=== PATIENT | male | born 1990 | race Caucasian/White ===

== ENCOUNTER 2020-10-01 21:29 | Emergency (ER) | payer BC ==
[2020-10-01] MEDS ORDERED: Sodium Chloride 0.9% 1,000 ML IV ONE (21:54)
--- NOTE | 2020-10-01 22:00 | EDM.PDOC ---
ED HPI GENERAL MEDICAL PROBLEM - General Chief Complaint: Cardiovascular Problem Stated Complaint: ELEVATED HR Time Seen by Provider: 10/01/20 21:45 Source of Information: Reports: Patient History Limitations: Reports: No Limitations - History of Present Illness INITIAL COMMENTS - FREE TEXT/NARRATIVE: Patient presents the ER tonight with a fast heart rate. Patient states appro ximately about 730 while playing tennis he bent down to picker / packer a ball and when he came up he noticed his heart rate was beating fast he would drink some cold water and it seemed to slow it down then he had a few seconds of dizziness he waited another 15 minutes and the heart rate did not slow down he presented here to the emergency room. Patient says over the last 10 years or so he has had intermittent episodes of the above with his heart rate racing he said it may last anywhere from minutes to hours at a time. He said it just comes on sporadically sometimes he has a dizziness sometimes he does not. He denies any chest pain or shortness of breath headache vision changes no diaphoresis or vision changes He said he has never seen a heart doctor and is not mention this to his primary care provider who he saw approximately a month or so ago for a wellness checkup and had no issues. He states he does drink significant amount of caffeine 3 to 4 cups of coffee a day plus Cokes denies energy drinks he did state he had a cup of coffee tonight at [facility] about 30 to 45 minutes prior to playing tennis. Does not drink does not smoke does not do drugs Family history of heart issues but he is unsure of what He has no other complaints at this time Duration: Hour(s): Location: Denies: Head, Face, Chest, Back Context: Reports: Activity, Exercise Associated Symptoms: Denies: Confusion, Chest Pain, Diaphoresis, Headaches, Loss of Appetite, Nausea/Vomiting, Shortness of Breath, Syncope, Weakness ED ROS GENERAL - Review of Systems Review Of Systems: See Below Constitutional: Reports: No Symptoms HEENT: Reports: No Symptoms, Other (He denies any ringing or roaring in the ears). Denies: Hearing Loss, Rhinitis, Sinus Problem, Vertigo Respiratory: Reports: No Symptoms Cardiovascular: Reports: Lightheadedness, Other (When asked if he had high blood pressure he had never noted any and states he was normal on his last visit he has no endorgan signs or symptoms). Denies: Chest Pain, Blood Pressure Problem, Dyspnea on Exertion, Edema, Orthopnea, Palpitations, Syncope Endocrine: Reports: No Symptoms GI/Abdominal: Reports: No Symptoms : Reports: No Symptoms Musculoskeletal: Reports: No Symptoms Skin: Reports: No Symptoms Neurological: Reports: No Symptoms Psychiatric: Reports: No Symptoms Hematologic/Lymphatic: Reports: No Symptoms Immunologic: Reports: No Symptoms ED EXAM, GENERAL - Physical Exam Exam: See Below Exam Limited By: No Limitations General Appearance: Alert, WD/WN, No Apparent Distress Eye Exam: Bilateral Eye: EOMI, Normal Inspection, PERRL Ears: Normal External Exam, Normal Canal, Hearing Grossly Normal, Normal TMs Nose: Normal Inspection, Normal Mucosa, No Blood Throat/Mouth: Normal Inspection, Normal Lips, Normal Teeth, Normal Gums, Normal Oropharynx, Normal Voice, No Airway Compromise Head: Atraumatic, Normocephalic Neck: Normal Inspection, Supple, Non-Tender, Full Range of Motion Respiratory/Chest: No Respiratory Distress, Lungs Clear, Normal Breath Sounds, No Accessory Muscle Use, Chest Non-Tender Cardiovascular: Normal Peripheral Pulses, Regular Rate, Rhythm, No Edema, No Gallop, No JVD, No Murmur, No Rub, Tachycardia Peripheral Pulses: 2+: Carotid (L), Carotid (R) GI/Abdominal: Normal Bowel Sounds, Soft, Non-Tender, No Organomegaly, No Distention Back Exam: Full Range of Motion Extremities: Normal Inspection, Normal Range of Motion, Non-Tender, No Pedal Edema, Normal Capillary Refill Neurological: Alert, Oriented, CN II-XII Intact, Normal Cognition Psychiatric: Normal Affect, Normal Mood Skin Exam: Warm, Dry, Intact, Normal Color, No Rash Lymphatic: No Adenopathy #1 Interpretation EKG Date: 10/01/20 Time: 21:30 Rhythm: NSR [place]: Normal P-Wave: Present QRS: Normal ST-T: Normal QT: Normal Course - Vital Signs Text/Narrative:: CBC BMP EKG 1 L normal saline bolus Patient was educated on decreasing amount of caffeine intake and to follow-up with his primary care provider for further work-up and consultation with 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 CBC within normal limits BUN slightly elevated at 20 1 L normal saline bolus heart rate is down to 105 blood pressure 154/92 Patient states he is good with diagnosis course treatment and disposition going home Last Recorded V/S: Last Vital Signs Temp 36.5 C 10/01/20 21:30 Pulse 116 H 10/01/20 21:30 Resp 21 H 10/01/20 21:30 BP 181/98 H 10/01/20 21:30 Pulse Ox 95 10/01/20 21:30 - Orders/Labs/Meds Orders: Active Orders 24 hr Category Date Time Status Sodium Chloride 0.9% @ Wide Open(1,000ml) Med 10/01/20 21:54 Ordered Sodium Chloride 0.9% [Normal Saline] 1,000 ml IV ONETIME Medication Orders Sodium Chloride (Normal Saline) 1,000 mls @ 999 mls/hr IV ONETIME ONE Stop: 10/01/20 22:54 Last Admin: 10/01/20 22:11 Dose: 999 mls/hr Documented by: Labs: Laboratory Tests 10/01/20 10/01/20 Range/Units 22:07 22:07 WBC 9.0 (4.0-10.0) x10^3/uL RBC 5.59 (4.5-6.0) x10^6/uL Hgb 16.6 (14.0-18.0) g/dL Hct 44.9 (40.0-52.0) % MCV 80.3 (78.0-93.0) fL MCH 29.7 (26.0-32.0) pg MCHC 37.0 H (32.0-36.0) g/dL RDW Coeff of [place] 12.2 (10.0-15.0) % Plt Count 161 (130-400) x10^3/uL Immature Gran % (Auto) 0.40 (0.00-0.43) % Neut % (Auto) 69.8 (50.0-80.0) % Lymph % (Auto) 19.4 L (25.0-50.0) % [place] % (Auto) 8.6 (2.0-11.0) % Eos % (Auto) 1.2 (0.0-4.0) % Baso % (Auto) 0.6 (0.2-1.2) % Neut # (Auto) 6.3 (1.8-7.7) x10^3/uL Lymph # (Auto) 1.7 (1.0-4.8) x10^3/uL [place] # (Auto) 0.8 (0.0-0.8) x10^3/uL Eos # (Auto) 0.1 (0.0-0.5) x10^3/uL Baso # (Auto) 0.1 (0.0-0.2) x10^3/uL Immature Gran # (Auto) 0.04 (0.00-0.07) x10^3/uL Sodium 141 (136-145) mmol/L Potassium 3.5 (3.5-5.1) mmol/L Chloride 103 (98-107) mmol/L Carbon Dioxide 25 (21-32) mmol/L Anion Gap 16.5 H (5-15) mmol/L BUN 20 H (7-18) mg/dL Creatinine 1.2 (0.70-1.30) mg/dL Est Cr Clr Drug Dosing 98.80 mL/min Estimated GFR (MDRD) > 60 Glucose 101 H (70-99) mg/dL Calcium 8.8 (8.5-10.1) mg/dL Meds: Medications Generic Name Dose Route Start Last Admin Trade Name Freq PRN Reason Stop Dose Admin Sodium Chloride 1,000 mls @ 999 mls/hr 10/01/20 21:54 10/01/20 22:11 Normal Saline IV 10/01/20 22:54 999 mls/hr ONETIME ONE Administration Departure - Departure Time of Disposition: 22:45 Disposition: Home, Self-Care 01 Condition: Good Clinical Impression: Tachycardia, Dizziness, Hypertension Referrals: Lesley Voss MD [Primary Care Provider] - Forms: ED Department Discharge Additional Instructions: Decrease the amount of caffeine you intake a day increase the amount of water that you drink to 6 to 8 glasses a day is the recommended amount Follow-up with your primary care provider in the next 24 to 48 hours If anything changes or gets worse return here to the emergency room Sepsis Event Note (ED) - Focused Exam Vital Signs: Vital Signs Temp Pulse Resp BP Pulse Ox 10/01/20 21:30 36.5 C 116 H 21 H 181/98 H 95 - Problem List & Annotations (1) Dizziness SNOMED Code(s): 064314312, 683972779 Code(s): R42 - DIZZINESS AND GIDDINESS Status: Acute Current Visit: Yes (2) Tachycardia SNOMED Code(s): 6992943 Code(s): R00.0 - TACHYCARDIA, UNSPECIFIED Status: Acute Current Visit: Yes - My Orders Last 24 Hours: My Active Orders 10/01/20 21:54 Sodium Chloride 0.9% @ Wide Open(1,000ml) Sodium Chloride 0.9% [Normal Saline] 1,000 ml IV ONETIME - Assessment/Plan Last 24 Hours: My Active Orders 10/01/20 21:54 Sodium Chloride 0.9% @ Wide Open(1,000ml) Sodium Chloride 0.9% [Normal Saline] 1,000 ml IV ONETIME
[2020-10-01 22:18] LABS: ANION GAP 16.5 mmol/L (5-15); CHLORIDE,CL 103 mmol/L (98-107); SODIUM,NA 141 mmol/L (136-145)
== END 2020-10-01 23:05 | disposition home or self-care (01) ==
LOC: VM.ED 21:29
DX: R00.0 Tachycardia, unspecified (principal); I10 Essential (primary) hypertension
CPT/HCPCS: 80048; 85025; 93010; 99284; 99285-25; J7030

== ENCOUNTER 2023-11-02 12:56 | Emergency (ER) | payer BC ==
[2023-11-02] MEDS: Diphtheria,Pertussis(Acell),Tetanus Vaccine 0.5 ML Syringe IM ONE (13:25)
== END 2023-11-02 13:35 | disposition home or self-care (01) ==
LOC: VM.ED 12:56
DX: S61.215A Laceration without foreign body of left ring finger without damage to nail, initial encounter (principal); Z23 Encounter for immunization; W26.0XXA Contact with knife, initial encounter
CPT/HCPCS: 12001; 90471; 90715; 99282-25; 99283

== ENCOUNTER 2024-01-27 22:06 | Emergency (ER) | payer BC | END 2024-01-27 23:35 | disposition home or self-care (01) | LOC: VM.ED 22:06 | DX: S82.62XA Displaced fracture of lateral malleolus of left fibula, initial encounter for closed fracture (principal); I10 Essential (primary) hypertension; W00.0XXA Fall on same level due to ice and snow, initial encounter | CPT/HCPCS: 99283 ==